=== PATIENT | female | born 1955 | race Caucasian/White ===

== ENCOUNTER 2024-01-25 18:00 | Outpatient (CLI) | payer MEDICARE, SELFPAY ==
[2024-01-25 18:29] LABS: Basophils Absolute Auto 0.03 K/uL (0.00-0.30); Basophils Percent Auto 0.5 % (0.0-3.0); Eosinophils Absolute Auto 0.04 K/uL (0.00-0.50); Eosinophils Percent Auto 0.7 % (0.0-7.0); Hematocrit 45.2 % (33.0-51.0); Hemoglobin* 14.8 gm/dL (12.0-16.0); Lymphocytes Percent Auto 23.5 % (20-44); Mean Corpuscular HGB Conc 33 gm/dL (32-36); Mean Corpuscular Hemoglobin 30 pg (26-34); Mean Corpuscular Volume 92 fL (80-100); Monocytes Percent Auto 5.6 % (0.0-11.0); Neutrophils Absolute Auto 3.86 K/uL (1.7-7.0); Neutrophils Percent Auto 69.7 % (42.0-72.0); Platelet Count* 343 K/uL (140-440); RDW Coefficient of Variation % 13.3 % (11.5-15.5); Red Blood Count 4.94 m/uL (4.00-5.20); White Blood Count* 5.54 K/uL (4.50-11.00)
[2024-01-25 18:35] LABS: Slide Review Reflex No
[2024-01-25 18:44] LABS: Albumin* 4.4 g/dL (3.3-5.0)
[2024-01-25 18:47] LABS: Alanine Aminotransferase* 21 U/L (4-35); Alkaline Phosphatase* 74 U/L (40-150); Aspartate Amino Transferase* 28 U/L (12-35); Bilirubin Total* 0.3 mg/dL (0.1-1.5); Total Protein* 6.8 g/dL (6.0-8.3)
[2024-01-25 18:54] LABS: C Reactive Protein* < 0.5 mg/dL (0.5-1.0)
[2024-01-25 19:15] LABS: Erythrocyte SedimentationRate* 4 mm/hr (2-20)
== END 2024-01-25 18:01 | disposition home or self-care (01) ==
PROVIDERS: PCP Family Medicine; Visit Provider Family Medicine
DX: R51.9 Headache, unspecified (principal); R53.81 Other malaise
CPT/HCPCS: 36415; 80076; 85025; 85651; 86140

== ENCOUNTER 2024-01-26 10:43 | Emergency (ER) | payer MEDICARE, SELFPAY ==
[2024-01-26 10:58] VITALS: BP 155/75; PULSE 81; RESP 16; TEMP 36.9; O2SAT 97; BMI 23.0
--- NOTE | 2024-01-26 12:04 | ED_ITS ---
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 He is due to undergo some surgery, with laser with her otolaryngology teacher there. But because the pain that she has had over the past week and a half she was sent here to the emergency room and got blood test. She is here today for follow-up because her appointment with her physician is not till , she felt that she just could not wait. She describes the pain as 4 5/10, she also has a lot of discomfort into her upper neck region, and she also has some chest discomfort associated with this the comes and goes, over the last couple days. Not associated with the exercise, more associated with eating, with some radiation into her chest and almost a pressure sensation. No past history of any cardiac disease, in fact she does not take any medications at all, no history of hyper lipids, smoking, diabetes, or strokes, pulmonary embolism, DVTs. Tylenol does help this but she has does not like taking medication. elicited complaint: headache Onset description: gradually Location: frontal and facial Severity: moderate Quality & Timing: aching, throbbing and steady Exacerbating factors: movement of head/neck Related Data Home Medications Medication Instructions Recorded Confirmed turmeric root extract 500 mg tablet 500 mg PO QDAY 02/26/23 02/26/23 Allergies Allergy/AdvReac Type Severity Reaction Status Date / Time No Known Allergies Allergy Unverified 09/17/23 15:01 Review of Systems Status of ROS: Reports: 10 or more systems reviewed and unremarkable except as noted in History and below [facility] Medical History History of back problems Surgical History History of surgery ?Z98.890 - Other specified postprocedural states (ICD-10) History of surgical removal of ganglion cyst ?Z98.890 - Other specified postprocedural states (ICD-10) Family History Mother Cervical cancer Social History Smoking Status: Never smoker Do you use any of these nicotine containing products: None Second hand tobacco smoke exposure: No How often do you have a drink containing alcohol: never AUDIT-C Alcohol total score: 0 Non-prescribed substance use: marijuana (any form) Exam Narrative: Exam Narrative: On examination she is speaking to me normally, she is in a well lit room, she is not photophobic, GCS is 15/15, oriented x3, her pupils equal round reactive to light her fundi appear normal she tracks normally her TMs are normally, she has some very mild tenderness noted over her TMJs bilaterally, mouth opening is normal, with no trismus, jaws nontender, there is no lymphadenopathy anterior posterior chains, her neck has excellent range of motion, in flexion, extension, side flexion, and rotation, notes C-spine tenderness is noted, she has no tenderness noted over temples, or over the mastoid area. Chest is good air entry bilaterally with no wheezing crackles noted her heart sounds are normal, no clicks murmurs or gallops she moves all extremities independently and well. There is no tenderness to her abdomen, no organomegaly, bowel sounds are normal. Const: Vital Signs, click to edit/add: Vital Signs - 24 hr 01/26/24 10:58 Temperature 98.4 F Pulse Rate [Pulse Oximeter] 81 Respiratory Rate 16 Blood Pressure [Ri ght Upper Arm] 155/75 H Pulse Oximetry 97 Oxygen Delivery Me thod Room Air Documenting provider has reviewed patient's vital signs: yes Course Course ED Course: Maria Alejandra's labs from yesterday are normal, this effectively rules out a serious component like temporal arteritis, she has the chest pain, which sounds also be typical in nature, and a negative troponin in EKG. The chest pain she has had for the last couple days, coming and going at rest, which I think is more likely related to something like reflux. She does want to treat this with anything other than Tylenol, which I think is reasonable she can follow up with her regular physician, and discuss this with him. If he wants to go forward with a stress test, this would be reasonable I went over worsening condition, she will come back and be seen if this occurs Vital Signs Vital signs: Initial Vital Signs Temperature 98.4 F 01/26/24 10:58 Temperature Source Temporal Artery Scan 01/26/24 10:58 Pulse Rate 81 01/26/24 10:58 Respiratory Rate 16 01/26/24 10:58 Blood Pressure 155/75 H 01/26/24 10:58 Blood Pressure Mean 101 01/26/24 10:58 Pulse Oximetry 97 01/26/24 10:58 Oxygen Delivery Method Room Air 01/26/24 10:58 Vital Signs Temperature 98.4 F 01/26/24 10:58 Pulse Rate 81 01/26/24 10:58 Respiratory Rate 16 01/26/24 10:58 Blood Pressure 155/75 H 01/26/24 10:58 Pulse Oximetry 97 01/26/24 10:58 Oxygen Delivery Method Room Air 01/26/24 10:58 Temperature 98.4 F 01/26/24 10:58 Pulse Rate 81 01/26/24 10:58 Respiratory Rate 16 01/26/24 10:58 Blood Pressure 155/75 H 01/26/24 10:58 Pulse Oximetry 97 01/26/24 10:58 Oxygen Delivery Method Room Air 01/26/24 10:58 MDM - Headache MDM Narrative Medical decision making narrative: Life-threatening differential diagnosis include subarachnoid hemorrhage, meningitis, encephalitis, carbon monoxide poisoning, and intracerebral hemorrhage. Other differential diagnosis include but not limited to migraine, cluster headache, tension headache, [employer] TECH[employer]ICIAN vasculitis, mass lesion, temporal arteritis, click acute closed angle glaucoma, septal and trigeminal neuralgia, sinusitis, closed head injury, and stroke During the evaluation of this patient I considered multiple differential diagnosis is. The life-threatening differential diagnosis include coronary disease/CO, pulmonary embolism, pneumothorax, pneumonia, and aortic dissection. Other differential diagnosis included but were not limited to pericarditis, m yocarditis, chest wall pain, GERD, esophageal rupture, rib fracture contusion, pleurisy, as well as other etiologies. Medical Records Attestation: I reviewed the patient's medical records. Lab Data Attestation: I reviewed the patient's lab results. Lab results narrative: Lab results done yesterday show normal CRP normal ESR normal, normal white count normal hemoglobin. All very reassuring Labs: Lab Results 01/26/24 Range/Units 11:46 POC Troponin I 0.00 L (0.01-0.04) ng/ml ECG Data Attestation: I personally reviewed and interpreted this ECG as follows: Prior ECG tracings: not available for review Interpretation: EKG shows normal sinus rhythm, no acute ST wave changes, normal rate, Discharge Plan Discharge Clinical Impression: Headache, Chest pain Patient Disposition: Home w/ Parent or Adult Condition: Stable Instructions: Chest Pain (DC), Tension Headache (ED), Acute Headache (ED) Additional Instructions: We will discharge her home reassuring blood tests I think this for basically rules out temporal arteritis. The chest pain again up early this coming from a cardiac source, I wonder about possibly some reflux, I would take it easy, hopefully reassurance goes along way to helping you, acetaminophen 1 g 3 depressed by mouth twice daily is suggested for your headache, and then following up on with your primary care physician. Returning here if chest pain occurs with exercise worsening, shortness of breath or other symptoms Activity Level: No Restrictions Discharge Diet: Regular Prescriptions: No Action turmeric root extract 500 mg tablet 500 mg PO QDAY Follow Up/Referrals: Forrest Pendleton MD [Primary Care Provider] - Stand Alone Forms: Agenus Info Instructions
== END 2024-01-26 12:32 | disposition home or self-care (01) ==
PROVIDERS: Emergency Provider Family Medicine; PCP Family Medicine
DX: R51.9 Headache, unspecified (principal); R07.9 Chest pain, unspecified
CPT/HCPCS: 84484; 93005; 99284

== ENCOUNTER 2024-07-06 13:45 | Outpatient (RCR) | payer MEDICARE, SELFPAY | END 2024-09-12 13:35 | disposition home or self-care (01) | PROVIDERS: PCP Family Medicine; Visit Provider Family Medicine | DX: M19.042 Primary osteoarthritis, left hand (principal); M19.041 Primary osteoarthritis, right hand; Z51.89 Encounter for other specified aftercare; G44.89 Other headache syndrome | CPT/HCPCS: 97012; 97032; 97035; 97110; 97140; 97162; 97166; 97530; 97535; L3933; X5282 ==